=== PATIENT | female | born 1935 | race Caucasian/White ===

== ENCOUNTER 2018-12-24 21:07 | Inpatient (IN) | payer MEDICARE, OTHER ==
[~2018-12-24] VITALS: Ht 165.1 cm; Wt 59.4 kg
--- NOTE | 2018-12-24 21:15 | NUR ---
PT BIBRA FROM [facility] C/O DIZZINESS S/P NEAR SYNCOPE. -LOC, -TRAUMA +ETOH. PER RA, BP 81/36 REC'D 200ML NS. BS 126. PT ON MONITOR IN BED 11. AOX4. NAD NOTED. RESP EVEN AND UNLABORED. FAMILY AT BEDSIDE. WILL CONTINUE TO MONITOR.
--- NOTE | 2018-12-24 21:35 | NUR ---
PHLEB AT BEDSIDE FOR LAB DRAW
--- NOTE | 2018-12-24 21:41 | NUR ---
TECH AT BEDSIDE FOR EKG
[2018-12-24 21:46] LABS: BASOPHILS # (AUTO) 0.1 /CMM (0.0-0.2); BASOPHILS % (AUTO) 0.7 % (0.0-2.0); EOSINOPHILS % (AUTO) 2.5 % (0.0-6.0); HEMATOCRIT 33 % (33-45); HEMOGLOBIN 10.5 g/dL (11.5-14.8); LYMPHOCYTES # (AUTO) 2.9 /CMM (0.8-4.8); LYMPHOCYTES % (AUTO) 34.5 % (20.0-44.0); MEAN CORPUSCULAR HGB CONC 32 g/dl (31.0-36.0); MEAN CORPUSCULAR VOLUME 83 fL (82-100); MONOCYTES # (AUTO) 0.8 /CMM (0.1-1.30); NEUTROPHILS # (AUTO) 4.4 /CMM (1.8-8.9); NEUTROPHILS % (AUTO) 52.3 % (43.0-81.0); PLATELET COUNT (AUTO) 237 /CMM (150-450); RED BLOOD CELL COUNT(AUTO) 3.98 MIL/uL (4.0-5.2); WHITE BLOOD COUNT (AUTO) 8.4 K/uL (4.3-11.0)
[2018-12-24 21:53] LABS: CALCIUM, SERUM 8.7 mg/dL (8.5-10.1); CARBON DIOXIDE 22 mmol/L (21-32); CHLORIDE 104 mmol/L (98-107); CREATININE 1.4 mg/dL (0.6-1.3); GLUCOSE 127 mg/dL (74-106); POTASSIUM 3.3 mmol/L (3.5-5.1); SODIUM SERUM 136 mmol/L (136-145); UREA NITROGEN, BLOOD 26 mg/dL (7-18)
[2018-12-24] MEDS ORDERED: IV NS 0.9% 500 ML BAG IV ONE (22:00)
--- NOTE | 2018-12-24 22:00 | NUR ---
PT TAKEN TO RADIOLOGY VIA [facility]
--- NOTE | 2018-12-25 00:13 | NUR ---
DR ALLISON PAGEYesenia FOR PANEL.
--- NOTE | 2018-12-25 00:15 | NUR ---
CALL QASIM (DAUGHTER) [phone] FOR ANY UPDATES
--- NOTE | 2018-12-25 00:16 | NUR ---
CALLED HOUSE SUP FOR TELE BED
[2018-12-25] MEDS ORDERED: DILT240T12 PO (01:00)
[2018-12-25] MEDS ORDERED: OLME40TA12 PO (01:00)
--- NOTE | 2018-12-25 01:13 | NUR ---
REPORT GIVEN TO JULIO REBOLLEDO FOR PHAN
--- NOTE | 2018-12-25 01:35 | NUR ---
TUBE BALANCERPROVIDER ENGAGEMENT EXECUTIVE NOTES Received patient from ER via [facility] assisted by 2 ER staff. Admitted to Tele 304-1 with diagnosis of Syncope under the service of Dr. Jean Clancy. Patient able to ambulate with steady gait from [facility] to bed. Assisted to bed comfortably. Admission routine done. Patient refused skin assessment at this time claiming she has intact skin, no skin issue identified. On tele monitor with Sinus Yusuf with 1st degree AV block noted. No discomfort and unusualities noted at this time. On RA, no SOB/respiratory distress noted, saturating well 99%. Kept on bed clean, dry and comfortable. Admission orders noted and carried out. Call light at bedside. Kept bed low and locked, siderails up. Will continue to monitor accordingly.
[2018-12-25] MEDS ORDERED: IV NS 0.9% 1,000 ML IV PRN ×2 (01:45→07:36)
[2018-12-25] MEDS ORDERED: ZOLPIDEM TARTRATE 5 MG TABLET PO PRN (02:00)
[2018-12-25] MEDS ORDERED: MAGNESIUM HYDROXIDE 30 ML UDC PO PRN (02:00)
[2018-12-25] MEDS ORDERED: MAG HYDROX/AL HYDROX/SIMETH 30 ML UDC PO PRN (02:00)
[2018-12-25] MEDS ORDERED: ONDANSETRON HCL/PF 4 MG/2 ML VIAL IVP PRN (02:00)
[2018-12-25] MEDS ORDERED: HYDROCODONE/APAP 5/325MG 1 EACH TABLET PO PRN (02:00)
[2018-12-25] MEDS ORDERED: ACETAMINOPHEN 325 MG TABLET PO PRN (02:00)
[2018-12-25] MEDS ORDERED: Z GUARD REMEDY 2 OZ OINT TP PRN (02:00)
[2018-12-25 02:30] VITALS: BP 129/91
[2018-12-25 04:00] VITALS: BP 123/64
--- NOTE | 2018-12-25 06:22 | NUR ---
CALLIOPE PLAYER CLOSING NOTES Patient asleep at this time, with patent peripheral IV line with NS infusing well as ordered, no s/sx of infiltration noted. No SOB/respiratory distress noted at this time. No discomfort noted. On tele monitor with sinus alan/sinus rhythm with occasional sinus arrhythmia with 1st degree AV block noted. Patient remained stable and not other symptoms noted. All nursing needs attended. Kept clean, dry and comfortable. Call light at bedside. Kept bed low and locked with siderails x2 up. No new unusualities noted. Endorsed to the next shift for PHAN.
[2018-12-25 08:00] VITALS: BP 105/54
--- NOTE | 2018-12-25 08:00 | NUR ---
RN OPENING NOTES Received Patient awake in bed with no acute distress. A/O x 4. Breathing even and unlabored. Tele monitor in place, SR with HR-64. Denies pain. IV access on LEFT HAND 20gauge with IVF NS running at 75ml/hr. Skin intact. All needs rendered. Call light within reach. Will continue to monitor.
[2018-12-25] MEDS: POTASSIUM CHLORIDE 20 MEQ TAB.PRT.SR PO SCH ×3 (08:23→10:40)
--- NOTE | 2018-12-25 09:00 | NUR ---
RN NOTES Per Cyber Security Consultant, D/C Patient from Tele, transfer to Med/Surg. Will continue to monitor.
--- NOTE | 2018-12-25 09:30 | NUR ---
RN NOTES LEFT HAND IV access infiltrated. IV access removed and replaced. New IV access placed on LEFT FOREARM 20guage x 1 attempt. IV site clean, dry and intact. No redness, swelling nor pain noted. Patient tolerated well. IVF NS running at 75ml/hr. Will continue to monitor.
[2018-12-25 10:02] VITALS: BP_SYST 136; BP_SYST 146; BP_SYST 157; BP_DIAS 61; BP_DIAS 86
[2018-12-25 10:49] LABS: THYROID STIMULATING HORMONE 2.475 uIU/mL (0.358-3.74)
[2018-12-25 10:51] LABS: MAGNESIUM 1.9 mg/dL (1.8-2.4); PHOSPHORUS 2.9 mg/dL (2.5-4.9)
--- NOTE | 2018-12-25 11:12 | NUR ---
MEDICAL SCIENTIST NOTES Patient discharged home at this time. VS stable with no acute distress. Denies pain. No complaints of dizziness. Patient seen by MD, okay to discharge home. Patient seen by PT, Patient ambulated with no distress. Med reconciliation and discharge orders reviewed and explained to Patient and daughter. Patient verbalized understanding. All belongings with Patient. Patient will follow up with primary MD and Metal Bending Machine Operator appt. tomorrow. Escorted Patient to the lobby for safety. Patient picked up by daughter, Elaine, .
== END 2018-12-25 11:30 | disposition home or self-care (01) | DRG 312 ==
LOC: ER 21:18 → TELE 12-25 00:58 → MED 12-25 10:07
PROVIDERS: ADMIT Internal Medicine; ATTEND Internal Medicine
DX: R55 Syncope and collapse (principal); N17.9 Acute kidney failure, unspecified; I10 Essential (primary) hypertension; I48.91 Unspecified atrial fibrillation; Z91.040 Latex allergy status; E87.6 Hypokalemia; E86.0 Dehydration; I25.10 Atherosclerotic heart disease of native coronary artery without angina pectoris; D64.9 Anemia, unspecified; R73.9 Hyperglycemia, unspecified
CPT/HCPCS: 36415; 70450-TC; 71045-TC; 80048-TC; 80061-TC; 82728-TC; 83540-TC; 83735-TC; 84100-TC; 84439-TC; 84443-TC; 84484-TC; 85025-TC; 85730-TC; 87081-TC; G0378; J7030; J7040